=== PATIENT | female | born 1990 | race Caucasian/White ===

== ENCOUNTER 2016-03-23 07:34 | Emergency (ER) | payer BC ==
[2016-03-23] MEDS ORDERED: KETOROLAC 30 MG/ML VIAL ONE (09:08)
[2016-03-23] MEDS ORDERED: ONDANSETRON 4 MG VIAL ONE (09:08)
[2016-03-23] MEDS ORDERED: SODIUM CHLORIDE 0.9% 1,000 ML ONE (09:08)
[2016-03-23] MEDS ORDERED: CEFTRIAXONE 1 GM VIAL ONE (11:14)
[2016-03-23] MEDS ORDERED: SODIUM CHLORIDE 0.9% 100 ML IV ONE (11:16)
== END 2016-03-23 12:40 | disposition home or self-care (01) ==
LOC: ER 07:34
DX: N20.2 Calculus of kidney with calculus of ureter (principal)
CPT/HCPCS: 36415; 74176; 80053; 81001; 83690; 84703; 85025; 87077; 87088; 87186; 96361; 96365; 96375